=== PATIENT | male | born 1955 | race Asian ===

== ENCOUNTER 2017-11-15 21:31 | Inpatient (IN) | payer MEDICARE, MEDICAID ==
[~2017-11-15] VITALS: Ht 170.2 cm; Wt 70.5 kg
--- NOTE | 2017-11-15 21:31 | NUR ---
[id number] FROM HOME C/O ABD PAIN X 1 MONTH WITH N/V X 1 HOUR. VSS NAD. A/OX4 ABLE TO MAKE NEEDS KNOWN. WILL CONTINUE TO MONITOR FOR ANY CHANGES DURING THE SHIFT.
--- NOTE | 2017-11-15 21:38 | NUR ---
EKG AT BEDSIDE
--- NOTE | 2017-11-15 21:39 | NUR ---
BLOOD SENT TO LAB WITH SSRS REPORT DEVELOPER
[2017-11-15] MEDS ORDERED: ONDANSETRON HCL/PF 4 MG/2 ML VIAL ONE (22:28)
[2017-11-15] MEDS ORDERED: MORPHINE SULFATE INJ 4 MG/ML DISP.SYRIN ONE (22:29)
[2017-11-15] MEDS ORDERED: IV NS 0.9% 1,000 ML BAG IV ONE (22:30)
[2017-11-15] MEDS ORDERED: ONDANSETRON HCL/PF 4 MG/2 ML VIAL IVP ONE (22:30)
[2017-11-15] MEDS ORDERED: MORPHINE SULFATE INJ 2 MG/ML DISP.SYRIN IV ONE (22:30)
[2017-11-15 22:40] LABS: BASOPHILS % (AUTO) 0.3 % (0.0-2.0); EOSINOPHILS % (AUTO) 1.2 % (0.0-6.0); HEMATOCRIT 38 % (39-51); HEMOGLOBIN 13.1 g/dL (13.5-17.5); LYMPHOCYTES # (AUTO) 1.4 /CMM (0.8-4.8); LYMPHOCYTES % (AUTO) 24.8 % (20.0-44.0); MEAN CORPUSCULAR HGB CONC 35 g/dl (31.0-36.0); MEAN CORPUSCULAR VOLUME 89 fL (80-96); MONOCYTES # (AUTO) 0.3 /CMM (0.1-1.30); NEUTROPHILS # (AUTO) 3.9 /CMM (1.8-8.9); NEUTROPHILS % (AUTO) 67.7 % (43.0-81.0); PLATELET COUNT (AUTO) 429 /CMM (150-450); RDW COEFFICIENT OF VARIATION 12.3 (11.5-15.0); RED BLOOD CELL COUNT(AUTO) 4.26 MIL/uL (4.5-6.0); WHITE BLOOD COUNT (AUTO) 5.7 K/uL (4.3-11.0)
[2017-11-15 22:48] LABS: CALCIUM, SERUM 9.7 mg/dL (8.5-10.1); CREATININE 1.1 mg/dL (0.6-1.3); POTASSIUM 3.5 mmol/L (3.5-5.1)
[2017-11-15 22:48] LABS: BILIRUBIN,URINE NEGATIVE (NEGATIVE); BLOOD, URINE NEGATIVE Ery/uL (NEGATIVE); COLOR,URINE YELLOW (YELLOW); KETONES,URINE NEGATIVE (NEGATIVE); LEUKOCYTE ESTERASE ,URINE NEGATIVE (NEGATIVE); NITRITE, URINE NEGATIVE (NEGATIVE); PH,URINE 8.5 (5.0-8.0); PROTEIN,URINE NEGATIVE (NEGATIVE); UGLUCOSE NEGATIVE (NEGATIVE); UROBILINOGEN,URINE 0.2 EU/dL (0.2)
[2017-11-15 22:50] LABS: APPEARANCE,URINE CLEAR (CLEAR)
[2017-11-15 22:50] LABS: INR 0.91 (0.87-1.13)
[2017-11-15 22:55] LABS: ALBUMIN 4.8 g/dL (3.4-5.0); BILIRUBIN,DIRECT 0.1 mg/dL (0.0-0.2); BILIRUBIN,TOTAL 0.5 mg/dL (0.2-1.0); TOTAL PROTEIN, SERUM 8.3 g/dL (6.4-8.2)
[2017-11-15 22:56] LABS: TROPONIN I 0.02 ng/mL (0.00-0.056)
[2017-11-16] VITALS (7 sets, daily range): BP systolic 131–167; BP diastolic 65–97
[2017-11-16] MEDS ORDERED: QUET200T PO (00:09)
[2017-11-16] MEDS ORDERED: CLON0.5T PO (00:09)
[2017-11-16] MEDS ORDERED: FENO145T35 PO (00:09)
[2017-11-16] MEDS ORDERED: TEMA30CA PO (00:09)
[2017-11-16] MEDS ORDERED: AMLO10TA6 PO (00:09)
[2017-11-16] MEDS ORDERED: GABA600T2 PO (00:09)
[2017-11-16] MEDS ORDERED: METF-440 PO (00:09)
[2017-11-16] MEDS ORDERED: LOSA1TAB42 PO (00:09)
--- NOTE | 2017-11-16 00:24 | NUR ---
TELE 113-1
--- NOTE | 2017-11-16 00:46 | NUR ---
report given to khanh
--- NOTE | 2017-11-16 01:40 | NUR ---
PEOPLESOFT TALEO MANAGERATTENDANT CAMPGROUND NOTE PT ARRIVED TO [facility]IL UNIT ACCOMPANIED BY ER STAFF. PT IS A/O X4, AFEBRILE. RESPIRATIONS ARE EVEN AND UNLABORED, NOT IN ANY ACUTE DISTRESS NOTED. LUNG SOUNDS ARE CLEAR UPON AUSCULTATION. PUPILS ARE REACTIVE TO LIGHT. BILATERAL HAND STEAM CLOTHES PRESS OPERATOR ARE STRONG AND EQUAL. PT IS AMBULATORY. NO SKIN ISSUES NOTED. ABDOMEN IS ROUND AND NONDISTENDED. BOWEL SOUNDS ARE PRESENT IN ALL 4 QUADRANTS. DENIES ANY BLADDER DISCOMFORT. IV ACCESS INTACT, NO INFILTRATION NOTED. DRESSING KEPT CLEAN AND DRY. GER MALONE AWARE OF ADMISSION W/ ORDERS NOTED AND CARRIED OUT. WILL CONTINUE TO MONITOR THE PT THROUGHOUT SHIFT.
[2017-11-16] MEDS ORDERED: ZOLPIDEM TARTRATE 5 MG TABLET PO PRN (02:00)
[2017-11-16] MEDS ORDERED: Z GUARD REMEDY 2 OZ OINT TP PRN (02:00)
[2017-11-16] MEDS ORDERED: MAGNESIUM HYDROXIDE 30 ML UDC PO PRN (02:00)
[2017-11-16] MEDS ORDERED: ACETAMINOPHEN 325 MG TABLET PO PRN (02:00)
[2017-11-16] MEDS ORDERED: ENOXAPARIN SODIUM 40 MG/0.4 ML DISP.SYRIN SQ ONE (03:30)
[2017-11-16] MEDS: IV NS 0.9% 1,000 ML IV PRN ×2 (03:52→17:58)
[2017-11-16] MEDS: MORPHINE SULFATE INJ 4 MG/ML DISP.SYRIN IV PRN (04:02)
--- NOTE | 2017-11-16 06:29 | NUR ---
TAX SERVICES PROFESSIONAL CLOSING NOTES NEEDS MET AND RENDERED. AWAKE AND RESPONSIVE. AFEBRILE, RESPIRATIONS ARE EVEN AND UNLABORED, NOT IN ANY ACUTE DISTRESS NOTED. DENIES ANY CHEST PAIN, SOB, N/V. IV SITE INTACT, FLUIDS RUNNING AND TOLERATING WELL. NO INFILTRATION NOTED. SAFETY MEASURES ARE IN PLACE. REMINDED PT TO USE CALL LIGHT WHEN ASSISTANCE IS NEEDED, CALL LIGHT IS LEFT WITHIN REACH. WILL ENDORSE TO NEXT SHIFT FOR CONTINUITY OF CARE.
[2017-11-16 06:58] LABS: BASOPHILS % (AUTO) 0.1 % (0.0-2.0); HEMATOCRIT 35 % (39-51); HEMOGLOBIN 11.9 g/dL (13.5-17.5); LYMPHOCYTES # (AUTO) 2.3 /CMM (0.8-4.8); LYMPHOCYTES % (AUTO) 33.7 % (20.0-44.0); MEAN CORPUSCULAR HGB CONC 34 g/dl (31.0-36.0); MEAN CORPUSCULAR VOLUME 90 fL (80-96); MONOCYTES # (AUTO) 0.5 /CMM (0.1-1.30); MONOCYTES % (AUTO) 6.6 % (2.0-12.0); NEUTROPHILS # (AUTO) 4.1 /CMM (1.8-8.9); NEUTROPHILS % (AUTO) 58.6 % (43.0-81.0); PLATELET COUNT (AUTO) 393 /CMM (150-450); RDW COEFFICIENT OF VARIATION 12.3 (11.5-15.0); WHITE BLOOD COUNT (AUTO) 6.9 K/uL (4.3-11.0)
[2017-11-16 07:25] LABS: ALBUMIN 4.3 g/dL (3.4-5.0); BILIRUBIN,TOTAL 0.5 mg/dL (0.2-1.0); CREATININE 0.8 mg/dL (0.6-1.3); POTASSIUM 3.5 mmol/L (3.5-5.1); TOTAL PROTEIN, SERUM 7.5 g/dL (6.4-8.2)
[2017-11-16 07:30] LABS: FERRITIN 107 ng/mL (8-388)
--- NOTE | 2017-11-16 07:30 | NUR ---
DEVELOPER AUTOMATIC INITIAL NOTES RECEIVED PATIENT IN BED, AOX4, SINHAL[place] AND MALAY SPEAKING, CO OF ABDOMINAL PAIN 5/10 WILL GIVE PAIN MEDICATIONS PRN, ON TELE MONITOR SR, AMBULATORY, USING URINAL AT BEDSIDE, IV LAC 20G, IVF NS @ 75 ML/HR, BED IN LOW AND LOCKED POSITION, CALL LIGHT WITHIN REACH, WILL CONTINUE TO MONITOR.
[2017-11-16 08:16] LABS: IRON, SERUM 97 ug/dl (50-175); TOTAL IRON BINDING CAPACITY 346 ug/dl (250-450)
[2017-11-16] MEDS ORDERED: SITA1TAB2 PO (08:21)
[2017-11-16] MEDS ORDERED: CHOL100044 PO (08:21)
[2017-11-16] MEDS ORDERED: OMEP40CA37 PO (08:21)
[2017-11-16] MEDS: HYDROCODONE/APAP 5/325MG 1 EACH TABLET PO PRN ×2 (17:56→21:53)
--- NOTE | 2017-11-16 18:42 | NUR ---
WELLNESS ASSISTANT END NOTES PATIENT RESTING IN BED, TOLERATING REGULAR DIET, PATIENT BLOOD SUGAR CHECKED PER PATIENT REQUEST BS 114, WILL ENDORSE TO INVISIBLE BRACES ORTHODONTIST FOR CONTINUITY OF CARE.
--- NOTE | 2017-11-16 20:49 | NUR ---
RECIEVED ALERT AND ORIENTATED SPPECH CLEAR NOTED HOME MEDS AT THE BEDSIDE. TAKEN TO THE PHARMACY. mADE AWARE HE NEEDS TO P/U THE MED WHEN GOING HOME. WATCHING TV DENIES PAIN AT THIS TIME.
[2017-11-17] MEDS: ONDANSETRON HCL/PF 4 MG/2 ML VIAL IVP PRN ×2 (02:29→12:02)
[2017-11-17 04:39] VITALS: BP 143/65
--- NOTE | 2017-11-17 05:28 | NUR ---
CLOSING NOTES: C/O ABD. PAIN MEDICATED WITH PO ANALGESIC AND EFFECT FOR ABD PAIN. AWAKENED DURING THE NIGHT AND WAS NAUSEATED, NO EMESIS, MEDICATED WITH ZOFRAN AND HE WENT BACK TO SLEEP, ZOFRAN EFFECTIVE. aBD ROUNG bs VIA AUSCULTATION STATES HE IS PASSING "GAS".
[2017-11-17 06:00] LABS: BASOPHILS % (AUTO) 0.3 % (0.0-2.0); HEMATOCRIT 36 % (39-51); HEMOGLOBIN 12.2 g/dL (13.5-17.5); LYMPHOCYTES # (AUTO) 1.6 /CMM (0.8-4.8); LYMPHOCYTES % (AUTO) 32.8 % (20.0-44.0); MEAN CORPUSCULAR HGB CONC 34 g/dl (31.0-36.0); MEAN CORPUSCULAR VOLUME 90 fL (80-96); MONOCYTES # (AUTO) 0.3 /CMM (0.1-1.30); MONOCYTES % (AUTO) 6.6 % (2.0-12.0); NEUTROPHILS # (AUTO) 2.9 /CMM (1.8-8.9); NEUTROPHILS % (AUTO) 59.3 % (43.0-81.0); PLATELET COUNT (AUTO) 399 /CMM (150-450); RDW COEFFICIENT OF VARIATION 12.4 (11.5-15.0); RED BLOOD CELL COUNT(AUTO) 4.03 MIL/uL (4.5-6.0); WHITE BLOOD COUNT (AUTO) 4.9 K/uL (4.3-11.0)
[2017-11-17 06:14] LABS: CREATININE 0.8 mg/dL (0.6-1.3); PHOSPHORUS 3.5 mg/dL (2.5-4.9); POTASSIUM 3.6 mmol/L (3.5-5.1)
[2017-11-17] MEDS: IV NS 0.9% 1,000 ML IV PRN (06:14)
--- NOTE | 2017-11-17 07:30 | NUR ---
FUNDRAISING SALE REPRESENTATIVE INITIAL NOTES RECEIVED PATIENT IN BED, AOX4, ALBANIAN AND UKRAINIAN SPEAKING, C/O OF ABDOMINAL PAIN 5/10 WILL GIVE PAIN MEDICATIONS PRN, ON TELE MONITOR SR, AMBULATORY, USING URINAL AT BEDSIDE, IV LAC 20G, IVF NS @ 75 ML/HR, BED IN LOW AND LOCKED POSITION, CALL LIGHT WITHIN REACH, WILL CONTINUE TO MONITOR.
[2017-11-17 08:00] VITALS: BP_SYST 147; BP_SYST 151; BP_DIAS 65; BP_DIAS 74
[2017-11-17] MEDS ORDERED: ENOXAPARIN SODIUM 40 MG/0.4 ML DISP.SYRIN SQ SCH (09:00)
[2017-11-17] MEDS: MORPHINE SULFATE INJ 4 MG/ML DISP.SYRIN IV PRN (09:44)
[2017-11-17 12:00] VITALS: BP 147/74
[2017-11-17] MEDS ORDERED: ONDA4TAB5 PO (13:07)
[2017-11-17] MEDS ORDERED: ONDA8TAB6 PO (13:27)
--- NOTE | 2017-11-17 15:12 | NUR ---
Pt D/C home with family member at bedside.no s/s of distress,breathing even and unlabored.All m.d orders noted and carried out. I.V D/C.v/s WNL .Patients belongings picked up by family. Addendum: 11/17/17 at 1516 by KUNAL ALMANZA RN Patient refused skin assessment.
== END 2017-11-17 14:37 | disposition home or self-care (01) | DRG 392 ==
LOC: ER 21:33 → TELE1 11-16 01:09 → MEDSG1 11-16 10:00
PROVIDERS: ADMIT Nurse Practitioner Acute Care; ATTEND Nurse Practitioner Acute Care
DX: K57.30 Diverticulosis of large intestine without perforation or abscess without bleeding (principal); K75.81 Nonalcoholic steatohepatitis (NASH); E11.9 Type 2 diabetes mellitus without complications; E78.5 Hyperlipidemia, unspecified; G40.909 Epilepsy, unspecified, not intractable, without status epilepticus; I10 Essential (primary) hypertension; Z79.84 Long term (current) use of oral hypoglycemic drugs
CPT/HCPCS: 36415; 71045-TC; 76705-TC; 80048-TC; 80053-TC; 80061-TC; 80076-TC; 81000-TC; 82728-TC; 82962-TC; 83540-TC; 83690-TC; 83735-TC; 84100-TC; 84484-TC; 85025-TC; 85730-TC; 86704; 86706; 86709; 87081-TC; 87340; A4606; J1650; J2270; J2405; J7030; Z7610

== ENCOUNTER 2017-11-18 14:23 | Outpatient (CLI) | payer MEDICARE, MEDICAID ==
[~2017-11-18 14:23] MED LIST: AMLO10TA6 PO; CHOL100044 PO; CLON0.5T PO; FENO145T35 PO; GABA600T2 PO; LOSA1TAB42 PO; OMEP40CA37 PO; ONDA8TAB6 PO; QUET200T PO; SITA1TAB2 PO; TEMA30CA PO
[2017-11-18 14:30] VITALS: BP 151/84
== END 2017-11-18 23:59 | disposition home or self-care (01) ==
LOC: MSC 14:23
PROVIDERS: ATTEND Internal Medicine
DX: R07.89 Other chest pain (principal); K57.90 Diverticulosis of intestine, part unspecified, without perforation or abscess without bleeding; K75.81 Nonalcoholic steatohepatitis (NASH); E11.42 Type 2 diabetes mellitus with diabetic polyneuropathy; Z79.84 Long term (current) use of oral hypoglycemic drugs; I10 Essential (primary) hypertension; G40.909 Epilepsy, unspecified, not intractable, without status epilepticus; E78.5 Hyperlipidemia, unspecified; Z79.899 Other long term (current) drug therapy; Z79.82 Long term (current) use of aspirin